=== PATIENT | female | born 1960 | race Caucasian/White ===

== ENCOUNTER 2017-10-18 09:42 | Day surgery (SDC) | payer SELFPAY ==
[2017-10-17 12:00] VITALS: BMI 20.5
[2017-10-18] MEDS ORDERED: LACTATED RINGERS SOLUTION 1,000 ML IV SCH (10:30)
[2017-10-18] MEDS ORDERED: BACITRACIN 15 GM TUBE TOPICAL OINTMENT ONE (10:47)
[2017-10-18] MEDS ORDERED: LIDOCAINE 1%/EPI 1:100000 (20 ML MULTI DOSE VIAL) ONE (10:47)
[2017-10-18] MEDS ORDERED: PROPOFOL 20 ML ONE ×2 (11:27→14:04)
[2017-10-18] MEDS ORDERED: MIDAZOLAM HCL 2 MG/2 ML SINGLE DOSE VIAL ONE (11:27)
[2017-10-18] MEDS ORDERED: ROCURONIUM BROMIDE 50 MG/5 ML VIAL ONE (11:38)
[2017-10-18] MEDS ORDERED: CLINDAMYCIN PHOSPHATE 600 MG/4 ML VIAL ONE (11:45)
[2017-10-18] MEDS ORDERED: ePHEDrine SULFATE 50 MG/1 ML AMPULE ONE ×2 (11:49→15:19)
[2017-10-18] MEDS ORDERED: CLINDAMYCIN PHOSPHATE 600 MG/4 ML VIAL IVPB ONE (11:50)
[2017-10-18] MEDS ORDERED: LIDOCAINE 1%/EPI 1:100000 (20 ML MULTI DOSE VIAL) IJ ONE (11:58)
[2017-10-18] MEDS ORDERED: BACITRACIN 15 GM TUBE TOPICAL OINTMENT TP ONE (11:58)
[2017-10-18] MEDS ORDERED: NEOSTIGMINE METHYLSULFATE 0.5 MG/ML - 10 ML MDV ONE (12:46)
[2017-10-18] MEDS ORDERED: LIDOCAINE HCL/PF 2% SDV 5ML VIAL ONE (14:53)
[2017-10-18] MEDS ORDERED: LABETALOL HCL 5 MG/1 ML (100MG/20 ML VIAL) ONE (15:22)
[2017-10-18] MEDS ORDERED: ESMOLOL HCL 100,000 MCG/10 ML VIAL ONE (15:24)
[2017-10-18] MEDS ORDERED: NALOXONE HCL 0.4 MG/ML VIAL ONE (15:24)
[2017-10-18] MEDS ORDERED: GLYCOPYRROLATE 0.2 MG/1 ML VIAL ONE (15:24)
[2017-10-18] MEDS ORDERED: OXYTOCIN 10 UNITS/ML VIAL ONE (15:24)
[2017-10-18] MEDS ORDERED: MINERAL OIL/PETROLATUM,WHITE 3.5 GM TUBE ONE (15:24)
[2017-10-18] MEDS ORDERED: TERBUTALINE SULFATE 1 MG/1 ML VIAL SQ ONE (15:24)
[2017-10-18] MEDS ORDERED: METOPROLOL TARTRATE 5 MG/5 ML VIAL ONE (15:24)
[2017-10-18] MEDS ORDERED: ATROPINE SO4 0.4 MG/1 ML VIAL ONE (15:24)
[2017-10-18] MEDS ORDERED: hydrALAZINE HCL 20 MG/ML VIAL ONE (15:24)
[2017-10-18] MEDS ORDERED: ceFAZolin SODIUM 1 GM VIAL ONE (15:24)
[2017-10-18] MEDS ORDERED: NITROGLYCERIN 2% OINTMENT - 1GM PACKET TD ONE ×2 (15:45→16:00)
--- NOTE | 2017-10-18 16:31 | OP ---
Operative Note - Note: Operative Date: 10/18/17 Pre-Operative Diagnosis: neck and lower face laxity Operation: necklift, lower facelift Findings: above Post-Operative Diagnosis: Same as Pre-op Surgeon: Prem Leung Anesthesia: General Drains, Volume Out (mls): 4
[2017-10-18] MEDS ORDERED: ONDANSETRON 4 MG/2 ML VIAL ONE ×2 (16:53→17:47)
[2017-10-18] MEDS: ONDANSETRON 4 MG/2 ML VIAL IVPUSH PRN ×2 (16:55→17:54)
--- NOTE | 2017-10-18 17:15 | PN ---
Progress Note (short form) - Note Progress Note: POst op check, no hematoma, VSS AF, Patient is grossly neurologically in tact. Weaker on the right side which was injected with local much more recently. Will obs for 2 hours prior to dischage. Instructions given to call for signs of hematoma which are reviewed with .
--- NOTE | 2017-10-18 18:18 | OP ---
DATE OF OPERATION: 10/18/2017 TITLE OF PROCEDURE: Neck lift and lower facelift, neck liposuction. PREOPERATIVE DIAGNOSES: Neck laxity, adiposity. ANESTHESIA: General endotracheal anesthesia. The patient is marked in the holding area. All risks, benefits, and alternatives to the procedure are discussed, understood, and agree to proceed. She is awake and aware of incisions and resulting scars. RICCO hose sequential compression stockings are applied preoperatively. She is also given clindamycin preoperatively. Patient is brought to the operating room, placed in a supine position. All pressure points are carefully padded. Ann catheter is placed and removed at the end of the procedure. Patient is then given anesthesia, draped, and prepped in standard surgical fashion. A timeout is called. Patient, procedure, sites, and sides are verified. At this point, the neck is infiltrated with 30 mL of the anesthetic mixture. The anesthetic mixture is as follows: 0.33% lidocaine with 1:300,000 epinephrine. Prior to dissecting any of the planned areas, each area is infiltrated with 30 mL of that above-described mixture. A total of 90 mL is used throughout the 4-hour period of the case of 0.33% lidocaine with 1:300,000 epinephrine. After waiting 10 minutes for the hemostatic effect of the mixture on the neck, closed liposuction is performed with postauricular incisions as well as a submental incision. This is done with first pre-tunneling using a 3-mm cannula, followed by low suction with a 3-mm cannula. At the completion of this, a submental incision is then made under direct vision. A subcutaneous preplatysmal plane is dissected. Judicious defatting of the neck is then further performed. The caudal borders of the platysmal muscle are divided 1.5 cm on each the right and left side to allow for sling re-draping of the neck. The ptotic-free edges of the platysma are then secured to one another with a running 4-0 Prolene suture, locked at the inferior apex, sewn both antegrade and retrograde as a 2-layer closure. A taut platysmal sling is achieved. Attention is then directed toward the patient's left cheek. An incision is made for the posterior access to the neck and lower face. This is made retrotragal just short of the sideburn postauricularly and just to, but not into, the posterior hairline. Facelift plane is then elevated, dissected using facelift scissors in standard facelift technique. The lower face was dissected, and this is connected to the submental dissection in the same plane as was developed in the submental dissection. At this point, a limited dissection onto the preauricular cheek is made in order to access a strip of SMAS fascia over the parotid gland. This is elevated in order to be transposed postauricularly. A 1.5-cm strip of SMAS is transposed postauricularly in order to tighten the sling on the platysma on the neck. This is done with a [id number] 3-0 PDS buried suture. Posterior platysmal plication is then performed with a series of interrupted 4-0 PDS buried suture. The anterior-superior border of the SMAS elevation is then repaired with a series of interrupted buried 4-0 PDS suture. Hemostasis is meticulously achieved. The wound is copiously irrigated. Attention is then directed toward the right cheek, where a mirror-image procedure is performed. After hemostasis is thoroughly assured, the skin is re-draped without tension. Excess skin is removed. A closure is performed with buried deep dermal 4-0 Monocryl suture. Postauricularly, a running 4-0 chromic gut suture is used. A 3/4-inch Ernie drain is placed on either side of the neck, brought out through the posterior aspect of the incision. A 1/4-inch [place] drain is brought out just posterior to the ear lobule, which is in the anterior preauricular cheek. The posterior hairline is closed with a series of interrupted ivette. The preauricular incision is closed with a running 6-0 nylon suture. Identical closure is performed bilaterally. The neck incision is then closed with a running 6-0 nylon suture. All skin appears pink and well vascularized; however, prophylactically, nitropaste is used on each skin edge as well as in the submental region. The remainder of the dressing is bacitracin, Telfa, [place] foam, Coleen, and an Thang wrap, which is applied prior to extubation. A normotensive extubation is performed. Patient is awoken and transferred to recovery without complication. LATESHA YEUNG M.D. [id number]
[2017-10-18] MEDS ORDERED: PROMETHAZINE HCL 25 MG/1 ML VIAL ONE (19:32)
[2017-10-18] MEDS ORDERED: PROMETHAZINE HCL 25 MG/1 ML VIAL IVPUSH ONE (19:40)
[2017-10-18] MEDS ORDERED: PROMETHAZINE HCL 25 MG/1 ML VIAL IVPUSH PRN (19:42)
[2017-10-18] MEDS ORDERED: DEXTROSE 5%-0.45% SALINE 1,000 ML IV SCH (19:45)
[2017-10-18] MEDS: MORPHINE SULFATE 2 MG/ML VIAL IVPUSH PRN (20:48)
[2017-10-18] MEDS: ONDANSETRON 4 MG/2 ML VIAL IVPB PRN (23:05)
[2017-10-19] MEDS: MORPHINE SULFATE 2 MG/ML VIAL IVPUSH PRN ×2 (01:17→09:04)
[2017-10-19] MEDS: oxyCODONE HCL 5 MG TABLET PO PRN ×2 (06:12→10:59)
[2017-10-19 06:57] VITALS: BP 102/59; PULSE 73; TEMP 98.1
[2017-10-19] MEDS ORDERED: LEVOTHYROXINE NA 75 MCG TABLET (FP) PO SCH (07:00)
--- NOTE | 2017-10-19 07:30 | PN ---
Progress Note (short form) - Note Progress Note: all nerve branches working, no collection, dressings changed, all tissue viable , OK for discharge with instructions, follow up tuesday.
[2017-10-19] MEDS: ONDANSETRON 4 MG/2 ML VIAL IVPB PRN (09:04)
== END 2017-10-19 11:00 | disposition home or self-care (01) ==
LOC: JASU-SURG 09:42 → J8W 20:00 → JASU-SURG 20:00 → J8W 20:10 → JASU-SURG 10-19 11:30
PROVIDERS: ATTEND Plastic Surgery
CPT/HCPCS: 94760